=== PATIENT | female | born 1970 | race Caucasian/White ===

== ENCOUNTER 2022-11-15 15:21 | Outpatient (CLI) | payer OTHER, SELFPAY ==
[2022-11-15 15:45] LABS: Hematocrit 41.5 % (37.0-47.0); Hemoglobin 13.7 g/dL (12.0-15.0); Mean Corpuscular Hemoglobin 30.6 pg (26-34); Mean Corpuscular Volume 92.6 fl (80-100); Platelet Count Result 293 k/mm3 (150-375); Red Blood Count 4.48 M/mm3 (4.2-5.4); Red Cell Distribution Width 12.6 % (11.5-14.5); White Blood Count 10.7 K/mm3 (4.5-10.0)
== END 2022-11-15 15:22 | disposition home or self-care (01) ==
LOC: ANHLAB 15:22
PROVIDERS: Visit Provider Student in an Organized Health Care Education/Training Program
DX: R10.2 Pelvic and perineal pain (principal); N39.3 Stress incontinence (female) (male); Z01.818 Encounter for other preprocedural examination
CPT/HCPCS: 36415; 85027; 86850; 86900; 86901; 87086; 87088

== ENCOUNTER 2022-11-21 01:09 | Day surgery (SDC) | payer OTHER, SELFPAY ==
[2022-11-15 11:36] VITALS: BMI 37.8
--- NOTE | 2022-11-15 11:48 | PC.NURSE ---
Report to the Outpatient Waiting Room, entrance under the green pavilion located off [facility], at time 10:00 on date 11/21/22. Planned Procedure Time: 12:00. Time changes happen often and if your time is changed the preop area will call you the afternoon before. - You and your visitor will be asked to self-screen and do not enter if you have any COVID symptoms. - A mask is optional within the hospital at this time. Patients may have clear liquids (water, carbonated beverages, clear teas, apple juice) until 3 hours prior to surgery (9:00) with a maximum of 20 ounces. - No food from midnight until time of surgery Take the following medications with a SIP of water the morning of surgery: LEVOTHYROXINE DO NOT STOP ANY OF YOUR OTHER PRESCRIPTION MEDICATIONS PRIOR TO SURGERY ?EXCEPT THE FOLLOWING Medications to discontinue per physician: NAPROXEN Date to take last dose: PER DR. LEMUS Please no make-up, nail danish, hairspray, perfume, deodorant, or body powder the day of surgery. No jewelry (including any body piercings) or valuables the day of surgery, leave them at home. Please take a shower or bath the night before, or the morning of, surgery with an antibacterial soap. Wear comfortable, loose fitting clothing. - Jewelry must be removed prior to entering the operating room. Rings and piercings that are not removed may be cut off. - The hospital will not accept responsibility for valuables. - Please leave all valuables, including medications, at home the day of surgery. If you are going home after surgery, a licensed trailer tank truck driver must drive you home. - NO public transportation without another adult if you receive anesthesia. - We recommend that an adult stay with you for 24 hours following discharge. - We also recommend that you do not drive, make important decision, drink alcoholic beverages, or take any drugs that were not prescribed by your health care provider for at least 24 hours after your discharge time. Follow any additional instructions given to you from your surgeon. If you or anyone in your household have experienced Covid symptoms in the past week, please notify your surgeon or the nurse liaison at the phone number below for possible testing. Telephone instructions given to PT - HECTOR CASTRO and asked if any additional questions and then verbalized understanding. Patient advised to call surgeon office or pre surgery nurse liaison [phone] if any additional questions.
--- NOTE | 2022-11-20 14:10 | WPDANESEPPF ---
Anes - Initial Pre Proc Eval Procedure: Operation Date: 11/21/22 12:00 Proposed Procedures p Robotic Assisted Total Laparoscopic Hysterectomy with Bilateral Salpingectomy - Ancelmo Panda MD s Trans Vaginal Taping - Ancelmo Panda MD Date/Time: 11/20/22 14:10 Surgeon: Ancelmo Panda MD Pre Op Diagnosis: pelvic pain and urinary incontinence Patient Data Age: 52 Gender: F Height: 1.69 m Weight: 108 kg Allergies Allergy/AdvReac Type Severity Reaction Status Date / Time clarithromycin Allergy Intermediate Rash Verified 11/21/22 11:44 neomycin Allergy Mild Rash Verified 11/21/22 11:44 [From Neosporin ([id number])] polymyxin B Allergy Mild Rash Verified 11/21/22 11:44 [From Neosporin ([id number])] Home Medications Medication Instructions Recorded Confirmed Type amitriptyline 10 mg tablet 10 mg PO QHS 08/22/22 11/15/22 History cetirizine 10 mg capsule (Zyrtec) 10 mg PO HS 08/22/22 11/15/22 History levothyroxine 125 mcg capsule 125 mcg PO DAILY 08/22/22 11/21/22 History loratadine 10 mg tablet (Claritin) 10 mg PO DAILY 08/22/22 11/15/22 History montelukast 10 mg tablet 10 mg PO HS 08/22/22 11/15/22 History (Singulair) pantoprazole 20 mg tablet,delayed 20 mg PO .prn PRN GERD 08/22/22 11/15/22 History release naproxen 500 mg tablet 500 mg PO BID PRN Pain 11/15/22 11/15/22 History ibuprofen 600 mg tablet 600 mg PO Q6H PRN pain #30 tabs 11/21/22 Rx oxycodone-acetaminophen 5 mg-325 1 tablet PO Q6H PRN pain #28 tabs 11/21/22 Rx mg tablet sulfamethoxazole 800 1 tablet PO Q12H #14 tabs 11/22/22 Rx mg-trimethoprim 160 mg tablet (Bactrim DS) Patient hx anesthesia problems: none Family hx anesthesia problems: none Results Review: All pre-operative results and documents have been reviewed as part of the pre-operative evaluation. [facility] Past Medical History Medical History (Updated 11/21/22 @ 17:03 by Ancelmo Panda MD) Anxiety Asthma Depression GERD (gastroesophageal reflux disease) Hypothyroid Surgical History Surgical History (Updated 11/20/22 @ 14:16 by Chao Ayala DO) History of tonsillectomy Family History Family History Grandparent Breast cancer Diabetes mellitus Sibling Malignant neoplasm of pancreas Social History Social History Smoking packs per day: 0.5 Smoking cigarettes per day: 10.0 Years smoked: 15 Smoking pack-years: 7.50 Smoking status: Current every day smoker Tobacco type: cigarettes Alcohol intake: current Drinks per week: 7 Alcohol use details: occasional Substance use: never Substance use type: does not use Living arrangements: with family Additional living arrangements comments: Occupation/Education: occupation Gender identity (if verbalized by the patient): Female Sexual Orientation (if Verbalized by the Patient): Straight or Heterosexual Spiritual care concerns: No Anes - Eval Final PreProcedure Day of Procedure 11/20/22 14:10 Patient weight: obese Heart: regular rate and rhythm Lungs: clear to auscultation Airway: Mallampati scale class II Neurological: alert and oriented Last oral intake: >/= 8 hours ASA classification: III Emergent: no Anesthetic plan: proceed Anesthesia type and monitoring: general ETT and standard monitoring Results Review: All pre-operative results and documents have been reviewed as part of the pre-operative evaluation. Informed Consent: The patient's anesthetic plan and its attendant risks and benefits were discussed with the patient/family/POA. Questions were solicited and answers provided to the satisfaction of the patient/family/POA.
[2022-11-21] VITALS (9 sets, daily range): BP systolic 105–133; BP diastolic 69–76; PULSE 62–80; RESP 10–17; TEMP 36.4–36.9; O2SAT 98–100
--- NOTE | 2022-11-21 07:29 | PM.IMHP ---
H&P: HPI History of Present Illness Date/Time: 11/21/22 07:29 Chief Complaint: abnormal uterine bleeding Pelvic pain Uterine fibroid Ovarian cyst Stress urinary incontinence Narrative: 52-year-old female who presents for robotic assisted hysterectomy, bilateral salpingectomy, retropubic mid urethral sling, cystoscopy for the above issues.? Patient initially presented complaining of abnormal bleeding and pelvic pain.? Patient had pelvic ultrasound which showed a right ovarian cysts and uterine fibroids.? Discussed management options at length. Patient also complaining of urinary incontinence.? Patient states she has stress urinary incontinence.? Patient reports approximately 3-4 episodes of incontinence per week.? Patient is requesting surgical correction of this at the time of hysterectomy. Review of Systems Cardiovascular: Cardiovascular: Denies chest pain, Denies leg edema, Denies palpitations, Denies dyspnea and Denies dyspnea on exertion Respiratory: Respiratory: Denies cough, Denies dyspnea and Denies dyspnea on exertion Gastrointestinal: Gastrointestinal: Denies abdominal pain, Denies constipation, Denies diarrhea, Denies nausea and Denies vomiting Genitourinary: Genitourinary: Denies hematuria, Denies urinary frequency, Denies dysuria, Denies pelvic pain, Denies urinary incontinence and Denies vaginal discharge Neurologic: Reports system reviewed and no additional complaints, except as documented Psychiatric: Psychiatric: Reports no additional psychiatric complaints Endocrine: Endocrine: Denies palpitations PMFSH Past Medical History Medical History (Updated 11/21/22 @ 07:31 by Ancelmo Panda MD) Anxiety Asthma Depression GERD (gastroesophageal reflux disease) Hypothyroid Surgical History Surgical History (Updated 11/20/22 @ 14:16 by Chao Ayala DO) History of tonsillectomy Family History Family History Grandparent Breast cancer Diabetes mellitus Sibling Malignant neoplasm of pancreas Social History Social History Smoking packs per day: 0.5 Smoking cigarettes per day: 10.0 Years smoked: 15 Smoking pack-years: 7.50 Smoking status: Current every day smoker Tobacco type: cigarettes Alcohol intake: current Drinks per week: 7 Alcohol use details: occasional Substance use: never Substance use type: does not use Living arrangements: with family Additional living arrangements comments: Occupation/Education: occupation Gender identity (if verbalized by the patient): Female Sexual Orientation (if Verbalized by the Patient): Straight or Heterosexual Spiritual care concerns: No Meds Home Medications and Allergies Home Medications Medication Instructions Recorded Confirmed Type amitriptyline 10 mg tablet 10 mg PO QHS 08/22/22 11/15/22 History cetirizine 10 mg capsule (Zyrtec) 10 mg PO HS 08/22/22 11/15/22 History levothyroxine 125 mcg capsule 125 mcg PO DAILY 08/22/22 11/15/22 History loratadine 10 mg tablet (Claritin) 10 mg PO DAILY 08/22/22 11/15/22 History montelukast 10 mg tablet 10 mg PO HS 08/22/22 11/15/22 History (Singulair) pantoprazole 20 mg tablet,delayed 20 mg PO .prn PRN GERD 08/22/22 11/15/22 History release naproxen 500 mg tablet 500 mg PO BID PRN Pain 11/15/22 11/15/22 History Allergies Allergy/AdvReac Type Severity Reaction Status Date / Time clarithromycin Allergy Intermediate Rash Verified 11/15/22 11:33 bacitracin Allergy Mild Rash Verified 11/15/22 11:33 [From Neosporin ([id number])] neomycin Allergy Mild Rash Verified 11/15/22 11:33 [From Neosporin ([id number])] polymyxin B Allergy Mild Rash Verified 11/15/22 11:33 [From Neosporin ([id number])] Exam Const: General: no acute distress Eyes: EOM: EOMs intact bilaterally Neck: Neck: supple Thyroid
--- NOTE | 2022-11-21 07:34 | WPDHPUPDATE1 ---
History and Physical Update Update Date/Time: 11/21/22 07:34 52-year-old female who presents for robotic assisted total laparoscopic hysterectomy with bilateral salpingectomy, retropubic mid urethral sling, cystoscopy, possible right oophorectomy. History and Physical has been reviewed, including an updated exam of the patient. There are NO changes in the patient's condition. Risks, benefits, and alternatives have been discussed and questions answered. Patient agrees to proceed with procedure.
[2022-11-21] MEDS: ACETAMINOPHEN 500 MG TABLET 1000 MG PO (11:30)
[2022-11-21] MEDS: KETOROLAC 15 MG/ML VIAL (*BKC) IV PUSH (11:30)
[2022-11-21] MEDS: LACTATED RINGERS 1,000 ML 30 ML IV CONT ×2 (11:41→14:46)
[2022-11-21] MEDS: ceFAZolin 2 GM/D5W 50 ML 2 GM/50 ML BAG IVPB (12:04)
[2022-11-21] MEDS: GENTAMICIN SULFATE INJ 400 MG in DEXTROSE 5% 100 ML 96.92 MG IVPB (12:04)
[2022-11-21] MEDS: LIDO 1%/EPINEPHRINE 1:100,000 20 ML VIAL 30 ML INFILTRATE (13:22)
[2022-11-21] MEDS: METHYLENE BLUE 0.5% INJ 10 ML AMPULE 5 ML IV PUSH (14:07)
--- NOTE | 2022-11-21 14:37 | W.PM.PROC2 ---
Procedure Note - Detailed Date of Procedure 11/21/22 Pre-op Diagnosis pelvic pain abnormal uterine bleeding uterine fibroid ovarian cyst urinary incontinence Post-op Diagnosis Same Procedure Performed robotic assisted total laparoscopic hysterectomy and bilateral salpingectomy, TVT mid-urethral sling, cystoscopy, passage of uretral guideqires Surgeon Ancelmo Panda MD Anesthesia General Findings enlarged fibroid uterus. stress urinary incontinence Description of Procedure After the patient was appropriately consented she was taken to the operating room where she was transferred to the table in a dorsal supine position. General anesthesia was then induced with endotracheal intubation. The patient was transferred to a dorsal lithotomy position using adjustable yellow-fin stirrups. Her position was adjusted for appropriate support of her lower back and lower extremities. The patient was prepped and draped. A transurethral richardson catheter was place. The cervix was sequentially dilated and a TRINIDAD uterine manipulator placed in typical fashion about a 3cm LEOBARDO ring. Gloves were changed. After confirmation of a functioning orogastric tube, lidocaine was injected at Mcelroy's point in the LUQ and a 5mm incision was made. A 5mm Optiview trocar was then inserted into the abdominal cavity under direct visualization and done so without complication. The abdomen was then insufflated with approximately 2-3L of CO2 establishing a pneumoperitoneum and the patient was placed in Trendelenburg position. Just above the umbilicus in the midline, a 8 mm incision made after injection of lidocaine and a 8 mm bladeless trocar advanced into the abdominal cavity under direct visualization without incident. We subsequently placed two robotic ports in a similar fashion, one in the left mid-quadrant and one in the right, 10cm lateral to the midline port. The robot was then docked. Attention was turned to the left pelvis. The left fallopian tube was removed by sequentially dividing the mesosalpinx towards the uterus sparing the ovary. The utero-ovarian ligament was desiccated and transected, as was the round ligament. The posterior peritoneal leaf was taken down to the LEOBARDO ring. The anterior leaf was developed as well as the start of the bladder flap. The left uterine artery was then skeletonized and desiccated and transected just above the level of the LEOBARDO ring. Attention was turned to the right pelvis. The right fallopian tube was removed by sequentially dividing the mesosalpinx towards the uterus sparing the ovary. The utero-ovarian ligament was desiccated and transected, as was the round ligament. The posterior peritoneal leaf was taken down to the LEOBARDO ring. The anterior leaf was developed as well as the start of the bladder flap. The right uterine artery was then skeletonized and desiccated and transected just above the level of the LEOBARDO ring. The bladder was then further dissected inferiorly over the level of the LEOBARDO ring. A circumferential colpotomy was made using monopolar current. The uterus, cervix, bilateral tubes were then delivered transvaginally. I then placed a single figure of eight suture of 0-vicryl in the left corner of the vaginal cuff. I then re-approximated the colpotomy with a running #1 PDO Quill suture in 2 layers. Following this dissection, the abdomen and pelvis were copiously irrigated and all surgical sites found to be hemostatic. Skin sites were reapproximated with 4-0 Vicryl in a subcuticular fashion. Steri-Strips were placed. Attention was then turned to the pelvis to complete the mid-urethral sling. The skin of the Mons was marked at the midline and two similar markings were made 2cm from the midline to the left and right directly above the pubic bone. The retropubic space was hydrodissected with lidocaine with epinephrine with a spinal needle. The anterior vaginal mucosa beneath the urethra was grasped with allis clamps. The submucosa was hydrodissecte
--- NOTE | 2022-11-21 15:06 | WPDURCON ---
Assessment and Plan Assessment and plan (1) Pelvic pain: Code(s): R10.2 - Pelvic and perineal pain Status: Acute Assessment and Plan: Normal cystoscopy and bilateral ureteral catheterization\ no evidence ureteral obstruction or injury Urology Consult Note HPI Date Seen: 11/21/22 Requesting Physician: Acnelmo Panda MD Primary Care Provider: Zechariah Gonzalez, Consult Narrative Narrative: Mely Vu is a 52 year old female we were asked to see is the intraoperative consultation to check the patency of ureters following a robotic assisted hysterectomy. Reportedly, there was no concern about ureteral injury during the course of the procedure but with postoperative cystoscopy there was not clear efflux from her ureteral orifice ease. With cystoscopy and placement of a retrograde ureteral catheter was apparent that her ureters were patent ureteral catheter passed with ease bilaterally. The see the separate dictated operative note. Review of Systems Review of Systems: ROS unobtainable: Yes unobtainable due to endotracheal tube PMFSH Past Medical History Medical History (Updated 11/21/22 @ 07:31 by Ancelmo Panda MD) Anxiety Asthma Depression GERD (gastroesophageal reflux disease) Hypothyroid Surgical History Surgical History (Updated 11/20/22 @ 14:16 by Chao Ayala DO) History of tonsillectomy Family History Family History Grandparent Breast cancer Diabetes mellitus Sibling Malignant neoplasm of pancreas Social History Social History Smoking packs per day: 0.5 Smoking cigarettes per day: 10.0 Years smoked: 15 Smoking pack-years: 7.50 Smoking status: Current every day smoker Tobacco type: cigarettes Alcohol intake: current Drinks per week: 7 Alcohol use details: occasional Substance use: never Substance use type: does not use Living arrangements: with family Additional living arrangements comments: Occupation/Education: occupation Gender identity (if verbalized by the patient): Female Sexual Orientation (if Verbalized by the Patient): Straight or Heterosexual Spiritual care concerns: No Meds Home Medications and Allergies Home Medications Medication Instructions Recorded Confirmed Type amitriptyline 10 mg tablet 10 mg PO QHS 08/22/22 11/15/22 History cetirizine 10 mg capsule (Zyrtec) 10 mg PO HS 08/22/22 11/15/22 History levothyroxine 125 mcg capsule 125 mcg PO DAILY 08/22/22 11/21/22 History loratadine 10 mg tablet (Claritin) 10 mg PO DAILY 08/22/22 11/15/22 History montelukast 10 mg tablet 10 mg PO HS 08/22/22 11/15/22 History (Singulair) pantoprazole 20 mg tablet,delayed 20 mg PO .prn PRN GERD 08/22/22 11/15/22 History release naproxen 500 mg tablet 500 mg PO BID PRN Pain 11/15/22 11/15/22 History Allergies Allergy/AdvReac Type Severity Reaction Status Date / Time clarithromycin Allergy Intermediate Rash Verified 11/21/22 11:44 neomycin Allergy Mild Rash Verified 11/21/22 11:44 [From Neosporin ([id number])] polymyxin B Allergy Mild Rash Verified 11/21/22 11:44 [From Neosporin ([id number])] Vital Signs Vital Signs - 24 hr 11/21/22 11:32 11/21/22 14:45 Temperature 98.5 F 97.5 F L Pulse Rate 63 80 Respiratory Rate 14 10 L Blood Pressure 124/73 105/72 Pulse Oximetry 100 98 Oxygen Delivery Room Air Simple Face Mask Oxygen Flow Rate 8
--- NOTE | 2022-11-21 15:11 | W.PM.PROC2 ---
Procedure Note - Detailed Date of Procedure 11/21/22 Pre-op Diagnosis Pelvic pain and urinary incontinence Post-op Diagnosis Same Procedure Performed Cystoscopy, bilateral ureteral catheterization Surgeon Jose Bahena MD Anesthesia General Findings 1. Normal bladder 2. Patent ureters bilaterally Description of Procedure patient is in the operative suite, having just complete a robotic hysterectomy Dr. Panda. With cystoscopy under was not clear urine effluxing from her ureteral orifices, prompting urological consultation. Cystoscopy demonstrated normal bladder neck and urethra. The bladder mucosa is normal without evidence of intravesical foreign body or neoplasm. Mucosa is without hyperemia. She has a single orthotopic ureteral orifice bilaterally. Any angiographic catheter passes along the entire ureter with ease bilaterally, suggesting no obstruction or injury. Ureteral catheterization past this so normally I did not feel retrograde pyelography was indicated. Dr. Panda was then of Elavil to complete the remainder of the procedure. Estimated Blood Loss 100 Urine Output -500.0
[2022-11-21] MEDS: fentaNYL CITRATE INJ (*CRX) 100 MCG/2 ML VIAL 25 MCG IV PUSH (15:31)
--- NOTE | 2022-11-21 16:04 | PM.DS ---
DS: Admitting Diagnosis Discharge Date 11/22/22 Admitting Diagnosis pelvic pain abnormal uterine bleeding uterine fibroid stress urinary incontinence ovarian cyst DS: Discharge Diagnosis Discharge Diagnosis (1) Abnormal uterine bleeding (AUB): Code(s): N93.9 - Abnormal uterine and vaginal bleeding, unspecified Status: Acute (2) Uterine fibroid: Code(s): D25.9 - Leiomyoma of uterus, unspecified Status: Acute (3) EVANGELINA (stress urinary incontinence, female): Code(s): N39.3 - Stress incontinence (female) (male) Status: Acute (4) Pelvic pain: Code(s): R10.2 - Pelvic and perineal pain Status: Acute DS: Summary Hospital Course Hospital Course: Mely Vu was admitted after robotic assisted total laparoscopic hysterectomy, bilateral salpingectomy, retropubic mid-urethral sling, and cystoscopy for the above issues. The above procedure was performed with no complications. She is doing well post op. She states her pain is well controlled with PO medications. She reports minimal bleeding. She is ambulating up to the chair. Her richardson catheter was removed. She is tolerating PO without N/V. She reports passing flatus. Status at Discharge Overall status at discharge: patient is progressing back to baseline Time Spent with Patient Time attestation: Total time spent providing and/or coordinating discharge services: Time spent: Less than 30 minutes Exam Const: General: comfortable and no acute distress Limitations: no limitations Resp: Effort & Inspection: normal respiratory effort Auscultation: clear to auscultation bilaterally Cardio: Rate: regular rate Rhythm: regular rhythm GI: Inspection: non-distended GI Palp: Yes Soft to palpation, Yes Tenderness to palpation present (GI) (milder tenderness to deep palpation) and No Guarding due to palpation present (GI) Auscultation: normal bowel sounds Other: incisions C/D/I covered with dermabond Urinary Catheter: Urinary Catheter: urine clear Skin: General skin exam: normal color Extrem: General: normal to inspection Psych: Mental Status: mental status grossly normal Affect: normal affect DS: Data Data Completed and Pending Pending studies at discharge: Pending at discharge 11/21/22 13:30 Surgical [PTH] Routine Discharge Plan Discharge Patient Disposition: Home, Self-Care Patient Instructions: Laparoscopic Hysterectomy (DC), Bladder Sling for Women (DC) Stand Alone Forms: General Discharge Instructions Follow-up/Referrals: Ancelmo Panda MD [Physician] - 2 Weeks Discharge Medications: New oxycodone-acetaminophen 5-325 mg tablet 1 tablet PO Q6H PRN (Reason: pain) Qty: 28 0RF ibuprofen 600 mg tablet 600 mg PO Q6H PRN (Reason: pain) Qty: 30 0RF Continued montelukast [Singulair] 10 mg tablet 10 mg PO HS levothyroxine 125 mcg capsule 125 mcg PO DAILY loratadine [Claritin] 10 mg tablet 10 mg PO DAILY Zyrtec 10 mg capsule 10 mg PO HS pantoprazole 20 mg tablet,delayed release (DR/EC) 20 mg PO .prn PRN (Reason: GERD) amitriptyline 10 mg tablet 10 mg PO QHS naproxen 500 mg Tablet 500 mg PO BID PRN (Reason: Pain) Attending physician on admission: Ancelmo Panda Condition: Stable
--- NOTE | 2022-11-21 16:18 | ADMGEN ---
This patient, Mely Vu, was admitted to OB 2nd Floor Room 289-00. Patient/family oriented to hospital policies and general routines including ID bracelet, bed and alarms, visiting hours, pain management, procedures, bathroom and other care routines, personal items, smoking policy, room service/diet, and visiting hours. Information on how to activate the Rapid Response Team has been discussed. Patient/Family are encouraged to report perceived risks to care and to ask questions if they do not understand what they are told or what they should do.
[2022-11-21] MEDS: DEXTROSE 5%/LACTATED RINGERS 1,000 ML 125 ML IV CONT (16:52)
[2022-11-21] MEDS: MONTELUKAST SODIUM 10 MG TABLET PO (19:35)
[2022-11-21] MEDS: AMITRIPTYLINE HCL 10 MG TABLET PO (19:35)
[2022-11-21] MEDS: HYDROcodone/acetaminophen (*CRX) 5-325 MG TABLET 1 TAB PO (19:35)
[2022-11-21] MEDS: IBUPROFEN 600 MG TABLET PO (19:35)
[2022-11-22 05:30] VITALS: BP 116/47; PULSE 66; RESP 16; TEMP 36.4
[2022-11-22] MEDS: HYDROcodone/acetaminophen (*CRX) 5-325 MG TABLET 1 TAB PO (05:40)
[2022-11-22] MEDS: IBUPROFEN 600 MG TABLET PO ×2 (05:40→11:29)
[2022-11-22 05:52] LABS: Anion Gap 4 mmol/L (8-16); Blood Urea Nitrogen 13 mg/dL (7-17); Calcium 8.3 mg/dL (8.4-10.2); Carbon Dioxide 25 mmol/L (22-30); Chloride 104 mmol/L (98-107); Estimated CRCL calculation 80 ml/min; Estimated Glomerular Filt Rate > 60; Glucose 116 mg/dL (65-110); Potassium 4.1 mmol/L (3.4-5.0); Sodium 133 mmol/L (137-145)
[2022-11-22] MEDS: LEVOTHYROXINE SODIUM 125 MCG TABLET PO (07:24)
[2022-11-22 08:10] VITALS: BP 125/59; PULSE 63; RESP 16; TEMP 36.6; O2SAT 100
[2022-11-22 10:00] LABS: Basophils Absolute Auto 0.1 K/mm3 (0.0-0.1); Basophils Percent Auto 0.3 % (0.2-1.2); Eosinophils Absolute Auto 0.1 K/mm3 (0-0.3); Eosinophils Percent Auto 0.4 % (0-4.4); Hematocrit 41.1 % (37.0-47.0); Hemoglobin 13.2 g/dL (12.0-15.0); Immature Granulocyte Absolute 0.07 K/mm3 (0.00-0.031); Immature Granulocyte Percent A 0.4 % (0-0.5); Lymphocytes Absolute Auto 2.02 K/mm3 (0.9-3.2); Lymphocytes Percent Auto 11.8 % (18.3-44.2); Mean Corpuscular HGB Conc 32.1 g/dl (32-36); Mean Corpuscular Hemoglobin 30.1 pg (26-34); Mean Corpuscular Volume 93.6 fl (80-100); Mean Platelet Volume 10.3 fl (7.4-10.4); Monocytes Absolute Auto 0.8 K/mm3 (0.1-0.6); Monocytes Percent Auto 4.7 % (2.6-8.5); Neutrophils Absolute Auto 14.1 K/mm3 (1.3-6.7); Neutrophils Percent Auto 82.4 % (45.5-73.1); Platelet Count Result 291 k/mm3 (150-375); Red Blood Count 4.39 M/mm3 (4.2-5.4); Red Cell Distribution Width 12.8 % (11.5-14.5); White Blood Count 17.1 K/mm3 (4.5-10.0)
--- NOTE | 2022-11-22 10:08 | PM.GYNPNOP ---
[employer] - A/P Postoperative Procedures: Procedures Operation Date: 11/21/22 12:00 Actual Procedure Side Surgeon p Robotic Assisted Total Laparoscopic Hysterectomy with Bilateral Salpingectomy Ancelmo Panda MD s Trans Vaginal Taping, Cystoscopy Not Applicable Ancelmo Panda MD Time Spent With Patient Time: Total time spent is greater than 50% in coordination of care (as documented) at patient's floor/unit and/or counseling patient: Time with patient: less than 15 minutes [employer]- PN:Subj Post-Op Subjective Date/time seen: 11/22/22 10:08 note: With leukocytosis and increased neutrophils, and significant instrumentation at her procedure, will empirically placed on Bactrim for 1 week. [employer] - PN: Obj Data Vital Signs Vital Signs: Vital Signs - 24 hr 11/21/22 11:32 11/21/22 14:45 11/21/22 15:00 Temperature 98.5 F 97.5 F L Pulse Rate 63 80 67 Respiratory Rate 14 10 L 15 Blood Pressure 124/73 105/72 111/70 Pulse Oximetry 100 98 100 Oxygen Delivery Room Air Simple Face Mask Simple Face Mask Oxygen Flow Rate 8 8 11/21/22 15:15 11/21/22 15:32 11/21/22 15:47 Temperature Pulse Rate 68 67 66 Respiratory Rate 17 16 15 Blood Pressure 116/76 124/75 131/69 Pulse Oximetry 99 100 98 Oxygen Delivery Room Air Room Air Room Air Oxygen Flow Rate 11/21/22 16:20 11/21/22 16:20 11/21/22 19:15 Temperature 97.5 F L 97.9 F Pulse Rate 62 76 Respiratory Rate 16 16 Blood Pressure 133/74 121/74 Pulse Oximetry 100 Oxygen Delivery Room Air Oxygen Flow Rate 11/21/22 22:17 11/22/22 05:30 11/22/22 08:10 Temperature 97.6 F 97.5 F L 97.9 F Pulse Rate 63 66 63 Respiratory Rate 16 16 16 Blood Pressure 122/69 116/47 L 125/59 L Pulse Oximetry 100 Oxygen Delivery Oxygen Flow Rate Intake/Output Intake/Output: Intake & Output 11/19/22 11/20/22 11/21/22 11/22/22 23:59 23:59 23:59 23:59 Intake Total 1560 1300 Output Total 1550 1900 Balance 10 -600 Meds/Results Medications: Active Medications Generic Name Dose Route Start Last Admin Trade Name Freq PRN Reason Stop Dose Admin Hydrocodone Bitart/Acetaminophen 1 tab 11/21/22 15:57 Hydrocodone/Acetaminophen (*Crx) 10-325 Mg Tablet PO Q3H PRN Pain Rated 6 or Greater Hydrocodone Bitart/Acetaminophen 1 tab 11/21/22 15:57 11/22/22 05:40 Hydrocodone/Acetaminophen (*Crx) 5-325 Mg Tablet PO 1 tab Q3H PRN Administration Pain Rated 5 or Less Amitriptyline HCl 10 mg 11/21/22 21:00 11/21/22 19:35 Amitriptyline Hcl 10 Mg Tablet PO 10 mg QHS MILLIE Administration Ibuprofen 600 mg 11/21/22 15:57 11/22/22 05:40 Ibuprofen 600 Mg Tablet PO 600 mg Q6H PRN Administration Cramping Ketorolac Tromethamine 30 mg 11/21/22 15:57 Ketorolac 30 Mg/Ml Vial (*Bkc) IV PUSH 11/26/22 15:56 Q6H PRN Pain Rated 4-6 Levothyroxine Sodium 125 mcg 11/22/22 06:30 11/22/22 07:24 Levothyroxine Sodium 125 Mcg Tablet PO 125 mcg DAILY@0630 MILLIE Administration Loratadine 10 mg 11/22/22 09:00 Loratadine 10 Mg Tablet PO DAILY MILLIE Montelukast Sodium 10 mg 11/21/22 21:00 11/21/22 19:35 Montelukast Sodium 10 Mg Tablet PO 10 mg HS MILLIE Administration Naloxone HCl 0.1 mg 11/21/22 15:57 Naloxone Hcl 0.4 Mg/Ml Vial IV PUSH Q2M PRN Respiratory rate less than 10 Ondansetron HCl 4 mg 11/21/22 15:57 Ondansetron Inj 4 Mg/2 Ml Vial IV PUSH Q6H PRN Nausea And Vomiting Pantoprazole Sodium 20 mg 11/21/22 15:57 Pantoprazole Sod Sesquihydrate 20 Mg Tab PO PRN PRN GERD Labs 11/22/22 09:41 11/22/22 05:19 Labs: Laboratory Results - last 24 hr 11/22/22 11/22/22 05:19 09:41 WBC 17.1 H RBC 4.39 Hgb 13.2 Hct 41.1 MCV 93.6 MCH 30.1 MCHC 32.1 RDW 12.8 Plt Count 291 MPV 10.3 Immature Gran % (Auto) 0.4 Neut % (Auto) 82.4 H Lymph % (Auto) 11.8 L [place] % (Auto) 4.7 E
== END 2022-11-22 12:15 | disposition home or self-care (01) ==
LOC: ANHSURGERY 15:49 → ANHOB2 16:00
PROVIDERS: PCP Family Medicine; Visit Provider Student in an Organized Health Care Education/Training Program
PROC: (CPT 57288; principal; 2022-11-21 12:00)
PROC: 0TSD0ZZ Reposition Urethra, Open Approach (ICD-10-PCS; CPT 57288; 2022-11-21 12:00)
DX: N39.3 Stress incontinence (female) (male) (principal); N93.9 Abnormal uterine and vaginal bleeding, unspecified; R10.2 Pelvic and perineal pain; D25.2 Subserosal leiomyoma of uterus; N84.1 Polyp of cervix uteri; N83.8 Other noninflammatory disorders of ovary, fallopian tube and broad ligament; N83.201 Unspecified ovarian cyst, right side; J45.909 Unspecified asthma, uncomplicated; E03.9 Hypothyroidism, unspecified; K21.9 Gastro-esophageal reflux disease without esophagitis; F41.9 Anxiety disorder, unspecified; F32.A Depression, unspecified; F17.210 Nicotine dependence, cigarettes, uncomplicated; E66.9 Obesity, unspecified; Z68.38 Body mass index [BMI] 38.0-38.9, adult
CPT/HCPCS: 57288; 58571; 52005; S2900; 36415; 80048; 85025; 85027; 86850; 86900; 86901; 87086; 87088; 88307; 99199; A9270; C1771; J0330; J0690; J1100; J1170; J1580; J1885; J1940; J2250; J2405; J2704; J2710; J3010; J7030; J7120; J7121; Q9968